=== PATIENT | male | born 1975 | race Two or more races ===

== ENCOUNTER 2019-01-21 12:21 | Emergency (ER) | payer MEDICAID ==
[~2019-01-21] VITALS: Ht 177.8 cm; Wt 90.7 kg
[2019-01-21 12:32] VITALS: BP 134/89
[2019-01-21] MEDS ORDERED: ONDANSETRON HCL/PF 4 MG/2 ML VIAL IVP ONE (13:00)
[2019-01-21] MEDS ORDERED: MORPHINE SULFATE INJ 2 MG/ML DISP.SYRIN IV ONE (13:00)
[2019-01-21] MEDS ORDERED: IV NS 0.9% 1,000 ML BAG IV ONE (13:00)
--- NOTE | 2019-01-21 13:30 | NUR ---
REFUSED IV PERIPHERAL LINE INSERTION DUE TO ALEVISM, MADE FREDY MARIA AWARE
--- NOTE | 2019-01-21 13:35 | NUR ---
PURCHASING CLERK AT BEDSIDE
== END 2019-01-21 14:25 | disposition left against medical advice (07) ==
LOC: ER 12:27
DX: R07.89 Other chest pain (principal); R10.84 Generalized abdominal pain; F41.9 Anxiety disorder, unspecified
CPT/HCPCS: 71045-TC

== ENCOUNTER → 2019-01-21 | Emergency (ER) | payer SELFPAY ==
--- NOTE | 2019-01-21 11:52 | NUR ---
CALLED TO TRIAGE,NO ANSWER
== END | disposition left against medical advice (07) ==
LOC: ER 11:29
DX: Z53.21 Procedure and treatment not carried out due to patient leaving prior to being seen by health care provider (principal)